=== PATIENT | male | born 1965 | race African-American/Black ===

== ENCOUNTER 2023-07-07 09:23 | Observation (INO) ==
[2023-07-07] MEDS ORDERED: ceFAZolin 2 GM PREMIX 2 GM/50 ML BAG ONE (10:08)
[2023-07-07 10:12] LABS: Rapid COVID-19 Molecular Undetected (Undetected)
[2023-07-07] MEDS: Buffered Lidocaine 1% SYRIN 1 ml INTRADERM ONE (10:33)
[2023-07-07] MEDS: Lactated Ringers 1000 ml BAG 1,000 ML IV SCH ×2 (10:33→18:40)
[2023-07-07] MEDS ORDERED: Propofol 10 MG/ML 20 ML BTL ONE (11:38)
[2023-07-07] MEDS ORDERED: Midazolam 2 mg/2 ml VIAL 1 mg/ml 2 ml VIAL (2 mg) ONE (11:38)
[2023-07-07] MEDS ORDERED: fentaNYL 100 mcg/2 ml 50 MCG/ML VIAL ONE (11:38)
[2023-07-07 12:09] LABS: Hematocrit 40.3 % (38-53); Mean Corpuscular Hemoglobin 31.6 pg (27-33); Mean Corpuscular Hgb Conc 34.8 g/dL (31-36); Mean Corpuscular Volume 90.9 fL (80-97); Red Blood Count 4.43 10^6/uL (4.06-5.63); Red Cell Distribution Width 15.1 % (12-17); White Blood Count 2.8 10^3/uL (3.6-10.2)
[2023-07-07] MEDS ORDERED: Naloxone 0.4 mg VIAL 0.4 mg/ml 1 ml VIAL IV PRN (12:33)
[2023-07-07 12:36] LABS: Mean Platelet Volume 9.9 fL (7.5-11.2); Platelet Count 60 10^3/uL (150-450)
[2023-07-07] MEDS ORDERED: Magnesium Hydroxide LIQ 30 ML UDC PO PRN (13:27)
[2023-07-07] MEDS ORDERED: Lactulose 30 ml UDC PO PRN (13:27)
[2023-07-07] MEDS ORDERED: Ondansetron ODT 4 mg TAB 4 MG TAB PO PRN (13:27)
[2023-07-07] MEDS ORDERED: Ondansetron 4 mg VIAL 2 MG/ML 2 ml VIAL IV PRN (13:27)
[2023-07-07] MEDS ORDERED: Rocuronium 50 mg VIAL 10 mg/ml 5 ml VIAL (50 mg) ONE (13:29)
[2023-07-07] MEDS ORDERED: KETAMINE HCL 10 MG/ML 20 ml VIAL (200 MG) ONE (14:03)
[2023-07-07] MEDS ORDERED: fentaNYL 250 mcg/5 ml 50 MCG/ML 5 ml VIAL (250 MCG) ONE (14:05)
[2023-07-07] MEDS ORDERED: HYDROmorphone 0.5 MG/0.5 ML SYRINGE ONE (14:05)
[2023-07-07] MEDS ORDERED: ROPIVACAINE 5 MG/ML 30 ML BTL (0.5%) ONE (14:14)
[2023-07-07] MEDS ORDERED: Ondansetron 4 mg VIAL 2 MG/ML 2 ml VIAL ONE (15:21)
[2023-07-07] MEDS ORDERED: Dexamethasone IV 4 MG/ML VIAL 1 ml VIAL ONE (15:21)
[2023-07-07] MEDS ORDERED: Acetaminophen IV 1 GM/100ML 1,000 MG/100 ML BAG IV ONE (15:44)
[2023-07-07] MEDS ORDERED: HYDROmorphone 1 MG/1 ML SYRINGE ONE (17:27)
[2023-07-07] MEDS: HYDROmorphone 1 MG/1 ML SYRINGE IV PRN (17:29)
[2023-07-07] MEDS: D5LR 1000 ml BAG 1,000 ML IV SCH (18:53)
[2023-07-07] MEDS: Morphine 2 MG/ML SYRINGE IV PRN (19:36)
[2023-07-07] MEDS ORDERED: Insulin LISPRO FOR INSULIN PUMP SUBCUT SCH (21:00)
[2023-07-07] MEDS: Magnesium Hydroxide LIQ 30 ML UDC PO SCH (22:11)
[2023-07-07] MEDS: ceFAZolin 1 GM ADVAN 1 GM in NS 0.9% 50 ML 50 ML IVPB SCH (22:14)
[2023-07-08 07:04] LABS: Calcium 8.7 mg/dL (8.6-10.3); Creatinine, Serum 1.88 mg/dL (0.67-1.17); Potassium 4.4 mmol/L (3.5-5.0); eGFR CKD-EPI 41.2 (>60)
[2023-07-08 07:18] LABS: Hematocrit 36.4 % (38-53); Hemoglobin 12.6 g/dL (13.2-16.3); Mean Platelet Volume 10.5 fL (7.5-11.2); Platelet Count 69 10^3/uL (150-450)
[2023-07-08] MEDS: PTO: Pancrelipase 36,000 units (NF) PO SCH (08:42)
[2023-07-08 10:16] VITALS: BP 179/92
[2023-07-08] MEDS: Vitamin THERAPEUTIC TAB PO SCH (10:35)
== END 2023-07-08 13:30 | disposition home or self-care (01) ==
LOC: AA 09:23 → INTOOBSV 09:23 → SSU 17:57
PROVIDERS: ADMIT Orthopaedic Surgery Adult Reconstructive Orthopaedic Surgery; ATTEND Orthopaedic Surgery Adult Reconstructive Orthopaedic Surgery

== ENCOUNTER 2023-08-03 17:46 | Observation (INO) ==
[2023-08-03] MEDS: Morphine 4 MG/ML VIAL (1 ml) IV ONE (22:23)
[2023-08-03] MEDS: Lactated Ringers 1000 ml BAG 1,000 ML IV ONE (22:23)
[2023-08-03 22:24] LABS: ABS Eosinophils 0.1 10^3/uL (0.0-0.5); ABS Lymphocytes 0.4 10^3/uL (1.0-4.8); ABS Monocytes 0.3 10^3/uL (0.0-1.1); ABS Neutrophils 1.3 10^3/uL (1.5-7.6); Eosinophil % 5.4 %; Hematocrit 31.1 % (38-53); Hemoglobin 10.6 g/dL (13.2-16.3); Lymphocyte % 17.9 %; Mean Corpuscular Hemoglobin 30.1 pg (27-33); Mean Corpuscular Volume 88.5 fL (80-97); Mean Platelet Volume 9.1 fL (7.5-11.2); Nucleated Red Blood Cells % 0.2 %/100WBC (0.0-0.8); Platelet Count 131 10^3/uL (150-450); Red Blood Count 3.51 10^6/uL (4.06-5.63); Red Cell Distribution Width 15.1 % (12-17); White Blood Count 2.1 10^3/uL (3.6-10.2)
[2023-08-03] MEDS: cefTRIAXone 1 gm/50 mL D5W 1 GM/50 ML BAG IV ONE (22:24)
[2023-08-03 22:33] LABS: INR 1.52 (0.83-1.13)
[2023-08-03 22:52] LABS: Potassium 3.8 mmol/L (3.5-5.0)
[2023-08-03 22:59] LABS: Albumin/Globulin Ratio 1.3 (1-3); Calcium 9.1 mg/dL (8.6-10.3); Creatinine, Serum 1.85 mg/dL (0.67-1.17); Globulin 3.1 g/dL (2-4); Total Protein 7.1 g/dL (6.4-8.9)
[2023-08-04] MEDS: Octreotide Acetate 50 MCG in NS 0.9% 50 ML 50 ML IV ONE (00:13)
[2023-08-04] MEDS: Pantoprazole VIAL 40 MG VIAL IV SCH (00:21)
[2023-08-04] MEDS: Octreotide Acetate 500 MCG in NS 0.9% 100 ml BAG 100 ML IV SCH (00:45)
[2023-08-04] MEDS: Iodixanol (CONTRAST) 320 MG/ML 100 ML SDV IV ONE (02:39)
[2023-08-04] MEDS: Morphine 2 MG/ML SYRINGE IV PRN ×2 (08:21→20:34)
[2023-08-04 08:48] LABS: ABS Eosinophils 0.1 10^3/uL (0.0-0.5); ABS Lymphocytes 0.5 10^3/uL (1.0-4.8); ABS Monocytes 0.3 10^3/uL (0.0-1.1); ABS Neutrophils 1.2 10^3/uL (1.5-7.6); ABS Nucleated RBC 0.01 10^3/ul; Eosinophil % 5.2 %; Hematocrit 29.3 % (38-53); Hemoglobin 9.9 g/dL (13.2-16.3); Lymphocyte % 23.4 %; Mean Corpuscular Hemoglobin 30.1 pg (27-33); Mean Corpuscular Hgb Conc 33.8 g/dL (31-36); Mean Corpuscular Volume 89.3 fL (80-97); Mean Platelet Volume 8.9 fL (7.5-11.2); Nucleated Red Blood Cells % 0.3 %/100WBC (0.0-0.8); Platelet Count 109 10^3/uL (150-450); Red Blood Count 3.28 10^6/uL (4.06-5.63); Red Cell Distribution Width 14.8 % (12-17); White Blood Count 2.2 10^3/uL (3.6-10.2)
[2023-08-04 09:20] LABS: Calcium 8.8 mg/dL (8.6-10.3); Creatinine, Serum 1.83 mg/dL (0.67-1.17); Magnesium 1.9 mg/dL (1.9-2.7); eGFR CKD-EPI 42.5 (>60)
[2023-08-04] MEDS ORDERED: Lidocaine 2% PF 5 ML VIAL ONE (16:33)
[2023-08-04] MEDS ORDERED: fentaNYL 100 mcg/2 ml 50 MCG/ML VIAL ONE (16:34)
[2023-08-04] MEDS ORDERED: Midazolam 2 mg/2 ml VIAL 1 mg/ml 2 ml VIAL (2 mg) ONE (16:35)
[2023-08-04 18:03] LABS: Hemoglobin 10.6 g/dL (13.2-16.3)
[2023-08-04] MEDS ORDERED: fentaNYL 100 mcg/2 ml 50 MCG/ML VIAL IV SLOW PU PRN (23:45)
[2023-08-05] MEDS: fentaNYL 100 mcg/2 ml 50 MCG/ML VIAL IV SLOW PU PRN (00:07)
[2023-08-05] MEDS: HYDROmorphone 1 MG/1 ML SYRINGE IV SLOW PU PRN (02:22)
[2023-08-05 06:23] LABS: ABS Eosinophils 0.1 10^3/uL (0.0-0.5); ABS Lymphocytes 0.4 10^3/uL (1.0-4.8); ABS Monocytes 0.2 10^3/uL (0.0-1.1); ABS Neutrophils 1.5 10^3/uL (1.5-7.6); Hematocrit 31.4 % (38-53); Hemoglobin 10.4 g/dL (13.2-16.3); Mean Corpuscular Hemoglobin 29.7 pg (27-33); Mean Corpuscular Hgb Conc 33.3 g/dL (31-36); Mean Corpuscular Volume 89.2 fL (80-97); Mean Platelet Volume 8.9 fL (7.5-11.2); Nucleated Red Blood Cells % 0.1 %/100WBC (0.0-0.8); Platelet Count 119 10^3/uL (150-450); Red Blood Count 3.52 10^6/uL (4.06-5.63); White Blood Count 2.2 10^3/uL (3.6-10.2)
[2023-08-05 06:54] LABS: Calcium 9.2 mg/dL (8.6-10.3); Creatinine, Serum 1.81 mg/dL (0.67-1.17); Potassium 4.3 mmol/L (3.5-5.0); eGFR CKD-EPI 43.1 (>60)
[2023-08-05] MEDS ORDERED: Naloxone Nasal Spray 4 MG/0.1 ML NASAL.SPR INTRANASAL PRN (07:47)
[2023-08-05] MEDS ORDERED: Fluticasone NASAL SPRAY 50MCG 16 gm SPRAY BTL INTRANASAL PRN (07:47)
[2023-08-05] MEDS ORDERED: PANCRELIPASE 36000 UNIT PO PRN (09:00)
[2023-08-05] MEDS ORDERED: INSULIN ASPART FOR INSULIN PUMP SUBCUT SCH (09:00)
[2023-08-05] MEDS: Cholecalciferol (VIT D3) 1,000 unit TAB PO SCH (09:18)
[2023-08-05] MEDS: fentaNYL 100 mcg/2 ml 50 MCG/ML VIAL ONE ×2 (13:28)
[2023-08-05] MEDS: Heparin 2 UNITS/ML 1000 mls 1,000 ML IV ONE (13:28)
[2023-08-05] MEDS: PANCRELIPASE 36000 UNIT PO SCH (13:47)
[2023-08-06 06:22] VITALS: BP 112/67
== END 2023-08-06 10:00 | disposition home or self-care (01) ==
LOC: ED 17:46 → INTOOBSV 08-04 06:24 → SUATTDRO 08-04 06:24 → EDHOLD 08-04 06:24 → SSU 08-04 08:16
PROVIDERS: ADMIT Internal Medicine; ATTEND Student in an Organized Health Care Education/Training Program
PROC: O.GIEGD (2023-08-04 15:35)